=== PATIENT | female | born 1990 | race Hispanic/Latino ===

== ENCOUNTER 2017-02-11 16:47 | Emergency (ER) | payer OTHER ==
[2017-02-11 18:43] LABS: Bilirubin Negative (Negative); Blood, Urine Negative (Negative); Glucose, Urine (Dipstick) Negative (Negative); Ketone, Urine 40 mg/dL (Negative); Nitrite Negative (Negative); Protein, Urine (Dipstick) Negative (Neg-Trace); Urobilinogen 0.2 mg/dL (0.2-1.0)
[2017-02-11 19:02] LABS: #Basophils 0.1 thou/uL (0.0-0.2); #Eosinphils 0.2 thou/uL (0.0-0.7); #Lymphocytes 2.8 thou/uL (1.20-3.40); #Monocytes 0.4 thou/uL (0.11-0.59); #Neutrophils 7.9 thou/uL (1.40-6.50); %Basophils 0.5 % (0.0-1.0); %Eosinophils 1.3 % (0.0-10.0); %Lymphocytes 24.9 % (21.0-51.0); %Monocytes 3.5 % (0.0-10.0); Hematocrit 38.1 % (36.0-47.0); Red Blood Cell (RBC) Count 4.12 mill/uL (4.20-5.40); White Blood Cell (WBC) Count 11.3 thou/uL (4.8-10.8)
[2017-02-11 19:26] LABS: ALT (SGPT) 10 U/L (8-55); AST (SGOT) 18 U/L (5-34); Alkaline Phosphatase 59 U/L (40-150); Anion Gap 13 mmol/L (10-20); BUN (Urea Nitrogen) 5 mg/dL (7.0-18.7); Bilirubin, Total 0.3 mg/dL (0.2-1.2); Calc. Creatinine Clearance 0 mL/min (70-130); Calcium 9.8 mg/dL (7.8-10.44); Carbon Dioxide 23 mmol/L (22-29); Chloride 104 mmol/L (98-107); Estimated GFR-MDRD Greater than 90; Globulin 3.7 g/dL (2.4-3.5); Protein, Total 7.6 g/dL (6.0-8.3)
--- NOTE | 2017-02-11 23:31 | ULT ---
PELVIC ULTRASOUND: 02/11/17 PROVIDED CLINICAL HISTORY: Abdominal pain, recent trauma, . FINDINGS: Single live intrauterine gestation is documented with heart rate of 150 beats per minute. Estimated g estational age based on this examination is 14 weeks, 6 days. Placenta is posteriorly located without evidence for previa or abruption. Cervical length appears adequate. The adnexal regions appear unrem arkable. There is no evidence for free pelvic fluid. IMPRESSION: Single live intrauterine gestation as described above. POS: CHARLY
== END 2017-02-11 23:25 | disposition home or self-care (01) ==
LOC: ERS 16:47
DX: O99.89 Other specified diseases and conditions complicating pregnancy, childbirth and the puerperium (principal); R10.13 Epigastric pain; Z3A.15 15 weeks gestation of pregnancy
CPT/HCPCS: 36415; 76856; 80053; 81003; 84702; 85025; 86900; 86901; 93976

== ENCOUNTER 2017-08-04 16:40 | Day surgery (SDC) | payer OTHER ==
--- NOTE | 2017-08-04 16:53 | PDOC.LDHP ---
Labor and Delivery H&P Chief complaint: contractions, loss of fluid, decreased movement HPI: 27 year old at 40.0 wks by LMP/10.3 wk u/s presents due to decreased movement, leaking of fluid, and contractions since 4:00 AM. Endorses headache and blurry vision over past two day. Blurry vision described as "dizziness" with double vision. Mildly improved with tylenol. Denies RUQ pain, visual changes, swelling, vaginal discharge, or vaginal bleeding. ROS: General: Denies fever, chills, changes in appetite HEENT: Denies congestion, rhinorrhea. 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 Endorses leaking of fluid. GI: Denies nausea, vomiting, diarrhea or constipation. Current gestational age (weeks): 40 Due date: 08/04/17 Dating criteria: last menstrual period, first trimester ultrasound (10.3 wks) Grav: 2 Para: 1 OB History Details: 1. S<D with EFW 42% on u/s at 29.1 wk Current complications: none Abnormal US findings: No Past Medical History: None Current medications: pre-william vitamins Allergies/Adverse Reactions: Allergies Allergy/AdvReac Type Severity Reaction Status Date / Time No Known Allergies Allergy Unverified 08/04/17 17:42 Social history: none - Physical Exam Vital signs reviewed and normal: yes General: NAD, resting Heart: RRR Lungs: CTAB Abdomen: gravid Extremeties: no edema - Vaginal Exam cm dilated: 1 (By Anyi at 17:15) Effacement: 50% Station: -3 - OB Labs Blood type: O RH: positive Antibody Screen: negative HIV: negative RPR: negative HEPSAg: negative 1 hour GCT: negative Rubella: immune Additional Labs: GC/C negative - Assessment Possible SROM: - Amnisure negative - Consider bedside u/s for JOSEFA - Modified Dukes Score of 4 Decreased movement: - NST with category I strip sIUP: - At 40.0 wks with АНДРЕЙ today Dispo: Amnisure negative with no contractions on monitor. Category I strip. Discharge patient home. Recommend patient be scheduled for post-date induction. - Plan Plan: observation in L&D (Consider admission pending amnisure and cervical check )
[2017-08-04 17:36] VITALS: BP 110/61; TEMP 97.7
[2017-08-04 17:44] VITALS: BMI 30.5
[2017-08-04 17:48] LABS: Amnisure Test No Membranes Rupture (No Rupture)
[2017-08-04 17:49] LABS: Amnisure Internal Control QC ACCEPTABLE (ACCEPTABLE)
== END 2017-08-04 19:20 | disposition home or self-care (01) ==
LOC: LAB 16:40 → L&D/OP 16:40
PROVIDERS: ATTEND Obstetrics & Gynecology
DX: O36.8130 Decreased fetal movements, third trimester, not applicable or unspecified (principal); Z3A.40 40 weeks gestation of pregnancy
CPT/HCPCS: 84112; 99283

== ENCOUNTER 2017-08-10 21:00 | Inpatient (IN) | payer MEDICAID, OTHER, SELFPAY ==
[2017-08-10 21:45] VITALS: BMI 27.1
[2017-08-10] MEDS: Lactated Ringer's 1,000 ML IV SCH (22:15)
--- NOTE | 2017-08-10 23:01 | PDOC.LDHP ---
Labor and Delivery H&P Chief complaint: scheduled induction HPI: 27 YO @ 40.6 by lmp c/w 10.3 weeks sono presents for iol 2/2 post dates. Per PN records pt has a history of s<d; however, growth US have been WNL. She reports occasional contractions (approx 4/hr) denies LOF, vaginal bleeding, cramps, abdominal pain, cp, sob, headache changes in vision and edema. Otherwise no other complications with this . Takes daily PNV, no other meds. Current gestational age (weeks): 40 (+6) Due date: 08/04/17 Dating criteria: last menstrual period, first trimester ultrasound Grav: 2 Para: 1 (1001) Current complications: none Abnormal US findings: Yes (s<d; normal growth US f/u) Current medications: pre-william vitamins Previous surgical history: none Social history: none - Physical Exam Vital signs reviewed and normal: yes General: NAD, resting Heart: RRR Lungs: CTAB Abdomen: NTTP Extremeties: no edema FHT: category 1 (baseline 130s, mod variability, pos accels, no decels), variability present [place] contractions every: 7-10 minutes - Vaginal Exam cm dilated: 3 Effacement: 50% Station: -2 - OB Labs Blood type: O RH: positive Antibody Screen: negative HIV: negative RPR: negative HEPSAg: negative 1 hour GCT: negative GBS: negative Urine drug screen: not done Rubella: immune - Assessment L&D Assessment: elective induction at term - Plan Plan: admit to L&D, cervical ripening, labor augmentation if indicated, anesthesia consult for pain management -: 1) Post dates induction: 40.6 by LMP c/w 10.3 week sono -admit L&d - molina score 5 (3cm, 40%, -2, medium, posterior) - cytotec for ripening - pt wants to have epidural, anesthesia consult for pain management - currently cat 1 strip, mod variability, bl 130s, + accels, no decels: maternal - resuscitation with supportive intervention as indicated (position change O2) - placenta posterior, baby vertex confirmed by bedside US 2) h/o s<d: growth US since have been wnl latest [place]lock 41% with geraldine 9.4 <Royal Proctor - Last Filed: 08/11/17 05:55> <Vince Robin - Last Filed: 08/11/17 05:57> Allergies/Adverse Reactions: Allergies Allergy/AdvReac Type Severity Reaction Status Date / Time No Known Allergies Allergy Verified 08/10/17 21:34 Attending Addendum - Attending Addendum Date/Time: 08/11/17 0556 I personally evaluated the patient and discussed the management with Dr. Proctor at the time of admission. I agree with the History, Examination, Assessment and Plan documented above with any addition or exceptions noted below. <Vince Robin A - Last Filed: 08/11/17 05:57>
[2017-08-10] MEDS ORDERED: Butorphanol Tartrate 1 MG/ML VIAL SLOW IVP PRN (23:10)
[2017-08-10] MEDS ORDERED: Ondansetron HCl/PF 4 MG/2 ML Vial IVP PRN (23:10)
[2017-08-10] MEDS ORDERED: Promethazine HCl 25 MG/ML VIAL IM PRN (23:10)
[2017-08-10] MEDS ORDERED: Acetaminophen 500 MG TAB PO PRN (23:10)
[2017-08-10] MEDS ORDERED: Lidocaine 1% (PF) 30 ML VIAL SC PRN (23:13)
[2017-08-10] MEDS ORDERED: Ibuprofen 800 MG TAB PO PRN (23:13)
[2017-08-10 23:18] LABS: Hemoglobin 13.5 g/dL (12.0-16.0); Mean Corpuscular HGB CONC 34.9 g/dL (32.0-36.0); Mean Corpuscular Hemoglobin 31.9 pg (27.0-31.0); Mean Corpuscular Volume 91.4 fl (81.0-99.0); Platelet Count 252 thou/uL (130-400); RBC Distribution Width 12.2 % (11.5-14.5); Red Blood Cell (RBC) Count 4.24 mill/uL (4.20-5.40); White Blood Cell (WBC) Count 11.3 thou/uL (4.8-10.8)
[2017-08-10] MEDS: Misoprostol 100 MCG TAB VAG SCH (23:32)
--- NOTE | 2017-08-10 23:36 | PDOC.EVN ---
Event Note - Event Note Event Note: Patient seen and care discussed with Dr Proctor. See his H&P.
[2017-08-10 23:47] LABS: HBSAg Index 0.19 S/CO (0-0.99); Hep B Surf Ag Non-Reactive S/CO (NonReactive)
[2017-08-10 23:48] LABS: Syphilis Antibody Nonreactive (Nonreactive); Syphilis Antibody Index 0.03 S/CO (<1.00 Non-Reactive)
[2017-08-11] MEDS: Lactated Ringer's 1,000 ML IV SCH ×3 (05:55→16:17)
--- NOTE | 2017-08-11 05:57 | PDOC.LDPN ---
Labor & Delivery Progress Note - Subjective Subjective: painful contractions, no concerns - Objective Vital signs reviewed and normal: yes General: NAD, breathing through contractions Uterine fundus: non tender Dilation: 3 Effacement: 50% Station: -2 FHT: category 1, variability present [place] contractions every: 3-4 Plan: continue plan of care, labor augmentation, resuscitative measures -: Pt seen and examined 4 am, strip reviewed. Making some cervical change on cytotec; given molina of [address] cytotec if contraction rate slows and no cervical change from previous change resuscitative measures prn
--- NOTE | 2017-08-11 06:38 | PDOC.LDPN ---
Labor & Delivery Progress Note - Subjective Subjective: painful contractions - Objective Vital signs reviewed and normal: yes General: NAD Uterine fundus: non tender Dilation: 3 Effacement: 50% FHT: category 1 [place] contractions every: 3-4 minutes Plan: continue plan of care -: Dukes score of 5- borderline, minimal change since 2329, Cat 1 strip, will consider augmentation later this AM
[2017-08-11] MEDS ORDERED: NS w/ Oxytocin 10 units 500 ML IV SCH (07:30)
[2017-08-11] MEDS ORDERED: DISCONTINUE ALL PREVIOUS NARCOTICS FS SCH (09:00)
--- NOTE | 2017-08-11 09:55 | PDOC.LDPN ---
Labor & Delivery Progress Note - Subjective Subjective: painful contractions - Objective Vital signs reviewed and normal: yes General: NAD Uterine fundus: non tender Effacement: 50% Station: -2 FHT: category 1 Plan: continue plan of care, pitocin for augmentation -: Started Pit at 0730 Nu q3 min, catergory 1 strip, no decels /-2 Getting epidural shortly
[2017-08-11] MEDS: Bupivacaine 0.75% 13.4 ML, fentaNYL Citrate/PF 400 MCG in Sodium Chloride 0.9% 78.6 ML EPIDURAL SCH ×2 (10:12→16:18)
[2017-08-11] MEDS ORDERED: Lactated Ringer's 500 ML IV PRN (10:34)
[2017-08-11] MEDS ORDERED: Ondansetron HCl/PF 4 MG/2 ML Vial IVP PRN (10:34)
[2017-08-11] MEDS ORDERED: Eucerin (Mineral Oil/Petrolatum,White) 30 gm Jar TOP PRN (10:34)
[2017-08-11] MEDS ORDERED: Naloxone HCl 0.4 mg/ml Vial IVP PRN ×2 (10:34)
[2017-08-11] MEDS ORDERED: ePHEDrine/0.9% NaCl/PF SYRINGE 50 mg/10 ml SLOW IVP PRN (10:34)
[2017-08-11] MEDS ORDERED: Promethazine HCl 25 MG/ML VIAL IM PRN (10:34)
[2017-08-11] MEDS ORDERED: diphenhydrAMINE 50 MG/ML VIAL IVP PRN (10:34)
[2017-08-11] MEDS ORDERED: Communication Order-Pharmacy FS SCH (10:45)
[2017-08-11] MEDS ORDERED: Fentanyl 4mcg/Marcaine 0.1% Cassette 100 ML EPIDURAL SCH (10:45)
--- NOTE | 2017-08-11 11:46 | PDOC.LDPN ---
Labor & Delivery Progress Note - Subjective Subjective: comfortable - Objective Vital signs reviewed and normal: yes General: NAD Dilation: 5cm Effacement: 50% Station: -1 FHT: category 1 Plan: continue plan of care -: - pitocin running - epidural in, mom is resting comfortably - cat 1 strip - /-1 - expectant management
--- NOTE | 2017-08-11 13:34 | PDOC.LDPN ---
Labor & Delivery Progress Note - Subjective Subjective: comfortable - Objective Vital signs reviewed and normal: yes Abnormal vital signs: one episode of low bp to 70s systolic, resolved after bolus and ephedrine General: NAD, resting Dilation: 5cm Effacement: 50% Station: -1 FHT: category 1 - Assessment (1) Term Code(s): Z34.80 - ENCOUNTER FOR SUPRVSN OF NORMAL , UNSP TRIMESTER Current Visit: No Status: Acute Plan: continue plan of care -: /1, same as last check Still on pitocin rashel q2 minutes, cat 1 strip will try peanut ball one episode of low bp, resolved after 300cc bolus and dose of ephedrine continue expectant management
--- NOTE | 2017-08-11 15:24 | PDOC.LDPN ---
Labor & Delivery Progress Note - Subjective Subjective: comfortable, loss of fluid - Objective Vital signs reviewed and normal: yes General: NAD, resting Dilation: 6cm Effacement: 75% Station: -1 FHT: category 1 AROM: clear fluid - Assessment (1) Term Code(s): Z34.80 - ENCOUNTER FOR SUPRVSN OF NORMAL , UNSP TRIMESTER Current Visit: No Status: Acute -: /-1 Fluid ruptured during cervical exam Clear fluid, non-odorous Nu q2-3 min, no decels BP trending in 110s, dipped down to 89 once Continue fluids continue expectant management
--- NOTE | 2017-08-11 17:26 | PDOC.LDPN ---
Labor & Delivery Progress Note - Subjective Subjective: comfortable - Objective Vital signs reviewed and normal: yes (bp 100/55) General: NAD, resting Uterine fundus: non tender Dilation: 9cm Effacement: 90% Station: 0 FHT: category 2, variable decelerations [place] contractions every: 2 min - Assessment (1) Term Code(s): Z34.80 - ENCOUNTER FOR SUPRVSN OF NORMAL , UNSP TRIMESTER Current Visit: No Status: Acute Plan: continue plan of care -: category 2 strip mom feeling some more pressure continue expectant management
--- NOTE | 2017-08-11 18:01 | PDOC.EVN ---
Event Note - Event Note Event Note: Transition of care from Dr. Feliciano to myself. Pt feeling more pressure but does not feel the need to push at this moment. Cat II strip with recurrent early decelerations (mod rogelio, no accels in 20 min strip). ctx q 2-4 min on pitocin at 20. epidural [address] place. VSS. continue poc with expectant mgmt and position changes.
[2017-08-11] MEDS: NS / Oxytocin 40 units/1000ml 1,000 ML IV PRN ×2 (18:36→19:41)
--- NOTE | 2017-08-11 18:55 | PDOC.EVN ---
Event Note - Event Note Event Note: I was present for and supervised the of a live female infant. See Delivery Note for details.
[2017-08-11] MEDS ORDERED: Misoprostol 200 MCG TAB ONE (19:11)
[2017-08-11] MEDS: Misoprostol 100 MCG TAB VAG SCH (19:38)
[2017-08-11] MEDS ORDERED: Misoprostol 200 MCG TAB VAG SCH (19:50)
[2017-08-11] MEDS ORDERED: NS / Oxytocin 40 units/1000ml 1,000 ML IV SCH (19:53)
[2017-08-11] MEDS ORDERED: Bisacodyl 10 MG SUPP PR PRN (19:53)
[2017-08-11] MEDS ORDERED: Milk Of Magnesia 30 ML UDCUP PO PRN (19:53)
[2017-08-11] MEDS ORDERED: Lanolin Ointment 7 GM TUBE TOP PRN (19:53)
[2017-08-11] MEDS ORDERED: Benzocaine/Menthol 20-0.5% 60 ML CAN TOP PRN (19:53)
[2017-08-11] MEDS ORDERED: diphenhydrAMINE 25 MG CAP PO PRN (19:53)
[2017-08-11] MEDS ORDERED: Preparation H Ointment 28 GM TUBE PR PRN (19:53)
--- NOTE | 2017-08-11 19:59 | PDOC.OPDEL ---
OB Operative/Delivery Note Delivery Dr/Surgeon: Esthela Ramirez Assist: Attending- Dr. Robin Pre-Delivery Diagnosis: medically indicated induction Procedure/Post Delivery Dx: spontaneous vaginal delivery Weeks gestation: 41 Anesthesia: epidural - Findings A Sex: female - 1 min: 8 - 5 min: 9 - Additional Findings/Plan Placenta delivered: spontaneous Repaired Obstetrical Laceration: 2nd degree (small perineal lac, repaired) Estimated blood loss: 400 ml Compilations/Other Findings: mild shoulder dystocia- resolved after 30 sec Noman Post delivery plan: routine recovery Operative Note - Operative Note Operative Note: 27yo F now @ 41.0 wks here for medically indicated IOL for post-dates who delivered a viable female at 1836 on 08/11/17. Following an uneventful antepartum course, a vigorous female was delivered over a lacerated perineum in the left occipitoanterior position. Mild anterior shoulder dystocia noted which resolved with steady downward pressure and 30 second of Noman. The remainder of the body then delivered. No nuchal cord. The mouth and nares were bulb suctioned. Delayed cord clamping was performed and after 1 minute, cord was clamped and cut and cord blood collected. Placenta delivered intact with a 3 vessel cord noted. Fundal massage was performed and the fundus was initially firm. The cervix was inspected and found to be free of lacerations. A second degree laceration was noted to the perineum which was repaired with 3-0 vicryl suture in the usual fashion with good approximation and hemostasis. Fundus was then massaged and found to be mildly boggy, but firmed with vigorous fundal massage. 800mcg cytotec placed MI to avoid PPH. Infant went to nursery in good condition for routine care. Patient tolerated delivery well and went to after routine recovery/care.
[2017-08-11] MEDS: Docusate Calcium (SURFAK) 240 MG CAP PO SCH (21:07)
[2017-08-11] MEDS: Ibuprofen 800 MG TAB PO SCH (21:07)
[2017-08-12] MEDS: Acetaminophen 325 MG TAB PO PRN ×3 (04:08→12:18)
[2017-08-12] MEDS: Ibuprofen 800 MG TAB PO SCH ×3 (05:53→20:51)
[2017-08-12] MEDS: Docusate Calcium (SURFAK) 240 MG CAP PO SCH (08:04)
[2017-08-12] MEDS: Ferrous Sulfate 325 MG TAB PO SCH ×2 (08:05→18:56)
--- NOTE | 2017-08-12 08:07 | PDOC.PP ---
Post Progress Note Post Day #: 1 Subjective: Patient is feeling well this morning. Some cramping, minimal bleeding. Urinating without difficulty, mild burning with urination, did have 2nd degree tear after delivery. Has not passed gas yet. No nausea or vomiting. Ambulating well. PO intake tolerated: yes Flatus: no Ambulation: yes Vital Signs (12 hours) Temp Pulse Resp BP 08/12/17 08:00 98.1 F 68 16 99/56 L 08/12/17 04:00 98.8 F 96 18 98/55 L 08/12/17 00:00 98.4 F 73 18 08/11/17 23:45 98.4 F 73 18 109/60 08/11/17 22:40 98.3 F 77 20 106/53 L 08/11/17 21:45 99.1 F 77 18 123/59 L Weight Weight 76.204 kg - Physical Examination General: NAD Cardiovascular: no m/r/g, RRR Respiratory: clear to auscultation bilaterally, non-labored breathing Abdominal: + bowel sounds, no distention, appropriately TTP Skin: no rash Neurological: no gross focal deficits Psychiatric: A&Ox3, normal affect Result Diagrams: 08/10/17 22:15 Additional Labs: Post Labs Hep Bs Antigen Non-Reactive S/CO (NonReactive) 08/10/17 22:15 (1) Term Code(s): Z34.80 - ENCOUNTER FOR SUPRVSN OF NORMAL , UNSP TRIMESTER Status: Acute (2) Normal course Code(s): Z39.2 - ENCOUNTER FOR ROUTINE FOLLOW-UP Status: Acute - Assessment/Plan # Normal post- course - f/u on flatulence - encourage fluids, po intake - tyl/ibuprofen for cramps - bleeding resolved
[2017-08-12] MEDS ORDERED: Adacel (T-DAP) 0.5 ML VIAL IM ONE (09:00)
[2017-08-12] MEDS ORDERED: Prenatal Vitamin 1 TAB PO SCH (09:00)
[2017-08-12 20:04] VITALS: BP 109/64; TEMP 97.8
== END 2017-08-12 21:25 | disposition home or self-care (01) | DRG 775 ==
LOC: L&D 21:21 → 3SW 08-11 21:44
PROVIDERS: ADMIT Family Medicine; ATTEND Family Medicine
PROC: 10E0XZZ Delivery of Products of Conception, External Approach (ICD-10-PCS; principal; 2017-08-10)
PROC: 0KQM0ZZ Repair Perineum Muscle, Open Approach (ICD-10-PCS; 2017-08-10)
PROC: 3E033VJ Introduction of Other Hormone into Peripheral Vein, Percutaneous Approach (ICD-10-PCS; 2017-08-10)
DX: O48.0 Post-term pregnancy (principal); Z37.0 Single live birth; Z3A.40 40 weeks gestation of pregnancy; O66.0 Obstructed labor due to shoulder dystocia; O70.1 Second degree perineal laceration during delivery
CPT/HCPCS: 51702; 76815; 85027; 86780; 87340; 99285; J2001; J2405; J3010; J7050

== ENCOUNTER 2020-04-17 08:34 | Outpatient (CLI) | payer OTHER ==
--- NOTE | 2020-04-17 09:41 | ULT ---
Obstetrical ultrasound: 04/17/2020 COMPARISON: None HISTORY: 29-year-old female undergoing assessment for anatomy TECHNIQUE: Multiplanar grayscale sonographic imaging of the gravid uterus obtained. FINDINGS: Cervical length is approximately 8 cm with a distended urinary bladder. Cervical length fol lowing voiding is approximately 5 cm. There is a single intrauterine gestation demonstrating a vertex presentation. Placenta is located ant eriorly with no evidence for previa or abruption. Assessment of the maternal adnexa was performed. Neither ovary could be visualized on this exam. The intracranial contents, spine, and stomach appear unremarkable. nose and lips appear g rossly unremarkable. Region of the kidneys and urinary bladder unremarkable. Three-vessel cord noted. Umbilical cord insertion site within normal limits. Amniotic fluid index is 12.7 cm. heart rate is 144 bpm. Four-chamber heart view is suboptimal secondary to positioning. biometry: Biparietal diameter 4.5 cm 19 weeks 5 days Head circumference 17.3 cm 19 weeks 6 days Abdominal circumference 14.7 cm 20 weeks 0 days Femur length 3.3 cm 20 weeks 2 days Average age patient on ultrasound is 20 weeks 0 days. Estimated weight is 328 g +/- 48 g (56 pe rcentile) Estimated date of delivery is 09/04/2020. IMPRESSION: Intrauterine gestation as detailed above. Suboptimal assessment of the four-chamber heart view.
== END 2020-04-17 08:35 | disposition home or self-care (01) ==
LOC: BICULT 08:34
PROVIDERS: ATTEND Family Medicine
DX: Z34.82 Encounter for supervision of other normal pregnancy, second trimester (principal); Z3A.20 20 weeks gestation of pregnancy
CPT/HCPCS: 76805